=== PATIENT | male | born 1970 | race Caucasian/White ===

== ENCOUNTER 2021-11-04 11:17 | Emergency (ER) | payer OTHER ==
[~2021-11-04] VITALS: Ht 167.6 cm; Wt 80.0 kg
[~2021-11-04 11:17] MED LIST: NAPROXEN; ibuprofen
[2021-11-04 11:21] VITALS: BP 134/86
[2021-11-04] MEDS ORDERED: SODIUM CHLORIDE 0.9% 1,000 ML IV ONE (16:00)
[2021-11-04] MEDS ORDERED: ONDANSETRON HCL 4MG/2ML INJ IV STA (16:00)
[2021-11-04] MEDS ORDERED: ACETAMINOPHEN 325MG TABLET PO STA (16:00)
[2021-11-04] MEDS ORDERED: MECLIZINE 25MG TABLET PO ONE (16:15)
[2021-11-04 16:34] LABS: CHLORIDE 100 mEq/L (98-107)
[2021-11-04 16:35] LABS: INR 1.1; PROTHROMBIN TIME 11.5 sec (9.6-11.0)
[2021-11-04 16:37] LABS: BASOPHILS % 0.3 % (0.0-2.0); EOSINOPHILS % 1.2 % (0.0-5.0); HEMATOCRIT. 42.8 % (42.0-52.0); HEMOGLOBIN. 14.7 g/dL (14.0-18.0); LYMPHOCYTES % 20.9 % (20.0-50.0); MEAN CORPUSCULAR HEMOGLOBIN 28.7 pg (28.0-32.0); MEAN CORPUSCULAR VOLUME 83.5 fL (80.0-94.0); MEAN PLATELET VOLUME 7.7 fl (7.4-10.4); MONOCYTES % 9.8 % (2.0-8.0); NEUTROPHILS % 67.8 % (40.0-76.0); PLATELET 381 x1000/uL (130-400); RED BLOOD CELL COUNT 5.12 mill/uL (4.7-6.1); RED CELL DISTRIBUTION WIDTH 14.6 % (11.6-14.6)
[2021-11-04 16:40] LABS: ETHANOL BLOOD < 10 mg/dL
[2021-11-04 17:14] LABS: CLARITY URINE CLEAR (CLEAR); COLOR URINE YELLOW (YELLOW); KETONES URINE NEGATIVE (NEGATIVE); LEUKOCYTE ESTERASE URINE NEGATIVE (NEGATIVE); NITRITE URINE NEGATIVE (NEGATIVE); OCCULT BLOOD URINE NEGATIVE (NEGATIVE); PH URINE 5.5 (4.5-8.0); PROTEIN URINE NEGATIVE (NEGATIVE); SPECIFIC GRAVITY URINE 1.021 (1.005-1.030)
[2021-11-04 17:26] LABS: *AMPHETAMINES SCREEN URINE NEGATIVE (NEGATIVE); *BARBITURATES SCREEN URINE NEGATIVE (NEGATIVE); *BENZODIAZEPINES SCREEN URINE NEGATIVE (NEGATIVE); *COCAINE SCREEN URINE NEGATIVE (NEGATIVE); CANNABINOID URINE SCREEN NEGATIVE (NEGATIVE); METHADONE URINE SCREEN NEGATIVE (NEGATIVE); OPIATES URINE SCREEN NEGATIVE (NEGATIVE); PHENCYCLIDINE URINE SCREEN NEGATIVE (NEGATIVE)
[2021-11-04] MEDS ORDERED: ONDA4TAB50 MT (19:42)
== END 2021-11-04 20:00 | disposition home or self-care (01) ==
LOC: ER 11:33
DX: K80.50 Calculus of bile duct without cholangitis or cholecystitis without obstruction (principal); R11.2 Nausea with vomiting, unspecified; I10 Essential (primary) hypertension
CPT/HCPCS: 36415; 70450; 71045; 76705; 80053; 80305; 80320; 81003; 83690; 85025; 85610; 93005; 96361; 96374; 99285; J2405; J7030; J8597; G0480